=== PATIENT | male | born 1990 ===

== ENCOUNTER 2024-10-17 12:24 | Emergency (ER) | payer MEDICAID, SELFPAY ==
--- NOTE | ~2024-10-17 | XR_ITS ---
EXAMINATION: XR CHEST 1 VIEW HISTORY: cp/heartburn COMPARISON: There are no prior studies for comparison. FINDINGS: A single PA view of the chest is submitted. The lungs are expanded and clear. There is no pleural effusion, pneumothorax, or pulmonary vascular congestion. The heart is normal in size. The bones are intact. XR/XR chest 1V IMPRESSION: Clear lungs. Electronically signed by: Stevie Vela MD 10/17/2024 01:53 PM EDT
[2024-10-17 12:59] VITALS: BP 119/43; PULSE 83; RESP 20; TEMP 36.4; O2SAT 97; BMI 27.1
--- NOTE | 2024-10-17 13:01 | ED.GIBLEED ---
HPI - GI Bleed General Chief complaint: Nausea/Vomiting/Diarrhea Stated complaint: Gastro bleed, sent from urgent care Time Seen by Provider: 10/17/24 15:34 History of Present Illness ED Provider: Dirk Jean MD HPI Narrative: 34-year-old male with left upper quadrant pain reported black emesis x4. Related Data Previous Rx's ?Medication ?Instructions ?Recorded valacyclovir 1 gram tablet 1,000 mg PO TID 3 days #30 tabs 04/07/21 (Valtrex) omeprazole 20 mg capsule,delayed 20 mg PO DAILY 90 days #90 caps 10/30/21 release fluticasone propionate 50 1 spray intranasal DAILY 30 days 01/29/22 mcg/actuation nasal #9.9 mL spray,suspension omeprazole 20 mg capsule,delayed 20 mg PO DAILY 14 days #14 caps 10/17/24 release Allergies Allergy/AdvReac Type Severity Reaction Status Date / Time shrimp [SHRIMP] Allergy Unknown UNKNOWN Verified 10/17/24 13:01 [facility] Social History Social History Advance Directives: No Advance Directives Information Provided: Yes Physical Exam Vital Signs: Vital Signs: Last Vital Signs Temp 97.6 F 10/17/24 17:28 Pulse 83 10/17/24 17:28 Resp 20 10/17/24 17:28 BP 119/43 L 10/17/24 17:28 Pulse Ox 97 10/17/24 17:28 O2 Del Method Room Air 10/17/24 17:28 BMI result Body Mass Index 27.1 Const: Other: EXAM: Gen: Alert, awake, well appearing, well hydrated. Head: Atraumatic Eyes: Anicteric, Normal conjunctiva. ENT: Moist mucosa, no pallor. ? Neck: Supple. Respiratory: Breathing comfortably, No distress.Clear to auscultation bilaterally, symmetric chest expansion, No wheeze, rales, ronchi. Cardiovascular: Regular rate and rhythm. No murmurs or rub. Well perfused periphery, warm extremities. No edema. ? Abdominal: Mild midepigastric tenderness only. Soft, no objective distension. No palpable masses or obvious organomegaly. ?No guarding, no rebound tenderness or other peritoneal findings. : No flank tenderness. Neuro: Alert. Gross movement of all extremities intact. ? Vital signs: See flowsheet Course Course Course Narrative: This is a Rapid Medical Exam performed in triage by Nasreen Acosta PA-C. Full HPI, ROS and PE to be performed by primary ED provider. 34 yo M presenting to the ED c/o epigastric abd pain, N/V coffee ground emesis/black emesis x last night s/p going to a BBQ & eating/drink [place]. denies emesis today. denies bloody/black stools. Denies anticoagulation use PE: Abdomen is soft with epigastric tenderness, no rebound or guarding Plan: Labs, UA Medications Administered Discontinued Medications Generic Name Dose Route Start Last Admin Trade Name David PRN Reason Stop Dose Admin Al Hydroxide/Mg Hydroxide 30 ml 10/17/24 15:35 10/17/24 16:30 Magnesium Hydrox/Alum Hydrox 30 Ml Oral.Susp PO 10/17/24 15:36 30 ml ONCE ONE Administration Lidocaine HCl 15 ml 10/17/24 15:35 10/17/24 16:30 Lidocaine Hcl Viscous 2 % 15 Ml Solution PO 10/17/24 15:36 15 ml ONCE ONE Administration Pantoprazole Sodium 80 mg 10/17/24 15:35 10/17/24 16:30 Pantoprazole Sodium 40 Mg/10 Ml Vial IVPUSH 10/17/24 15:36 80 mg ONCE ONE Administration Medical Decision Making Medical Decision Making [facility] Narrative: 34-year-old male presents 2 days after very heavy night of drinking mostly [place] and other liquor and eating pizza and greasy food. He had 4 episodes of dark described vomiting above not coffee ground he has never had GI bleeding. No vomiting episodes in the ED denies melena epigastric pain only at this time. No free air under the diaphragm no peritoneal signs. No anginal or cardiac symptoms Topical medications plus Protonix I will start him on 2 weeks PPI. Likely alcoholic gastritis can not confirm this if the patient's pain persists may need to follow up with GI felt better had some ice cream lab work reassuring including no drop in hemoglobin after repeat CBC Differential Diagnosis Differential Diagnoses: The differential diagnosis associated with the presentation includes GERD, gastritis, Gemini-James tear, less likely PUD upper GI bleed Lab Data [facility] Lab Attestation statement: I reviewed the patient's lab results. 10/17/24 16:11 10/17/24 13:18 Labs: Lab Results 05/27/25 05/27/25 05/27/25 Range/Units 13:17 13:18 13:19 WBC 10.0 (4.8-10.8) X10*3/uL RBC 4.84 (4.60-5.80) X10*6/uL Hgb 14.9 (14.0-18.0) g/dl Hct 43.6 (42.0-52.0) % MCV 90.1 (80.0-98.0) fL MCH 30.8 (27.0-33.0) pg MCHC 34.2 (31.0-36.0) g/dl RDW 12.8 (11.0-16.0) % Plt Count 262 (160-400) X10*3/uL MPV 8.6 L (9.4-12.4) fL Immature Gran % (Auto) 0.6 H (0.0-0.4) % Neut % (Auto) 40.1 L (45-73) % Lymph % (Auto) 48.2 H (20-40) % [place] % (Auto) 8.0 (2-11) % Eos % (Auto) 1.9 (0-4) % Baso % (Auto) 1.2 (0-2) % Lymph # (Auto) 4.8 (1.2-4.9) X10*3/uL [place] # (Auto) 0.8 (0.1-1.2) X10*3/uL Eos # (Auto) 0.2 (0.0-0.4) X10*3/uL Baso # (Auto) 0.1 (0.0-0.2) X10*3/uL Abs Immat Gran (auto) 0.06 H (0.00-0.03) X10*3/uL Absolute Neuts (auto) 4.0 (2.0-8.3) x10*3/uL Absolute Nucleated RBC 0.000 (0.0-0.012) X10*3/uL Nucleated RBC % (auto) 0.0 (0.0-0.2) /100WBC Neutrophils % (Manual) (45-73) % Band Neutrophils % (3-5) % Lymphocytes % (Manual) (20-40) % Atypical Lymphs % (Man) (0-6) % Monocytes % (Manual) (2-11) % Eosinophils % (Manual) (0-4) % Basophils % (Manual) (0-2) % Abs Neuts (Manual) (2.0-8.3) X10*3/uL Lymphocytes # (Manual) (1.2-4.9) X10*3/uL Atyp Lymphs # (Manual) x10*3/uL Monocytes # (Manual) (0.1-1.2) X10*3/uL Eosinophils # (Manual) (0.0-0.4) X10*3/uL Basophils # (Manual) (0.0-0.2) X10*3/uL Smudge Cells Platelet Estimate (NORMAL) Plt Morphology Comment RBC Morphology Macrocytosis /OIF Fernando Cells /OIF Smear Tech's Comments VERIFIED PT 13.3 H (10.9-12.4) SEC INR 1.2 H (0.9-1.1) Sodium 140 (135-145) mmol/L Potassium 3.6 (3.3-5.1) mmol/L Chloride 104 (96-108) mmol/L Carbon Dioxide 29 (22-29) mmol/L Anion Gap 11 L (12-20) BUN 14 (9-16) mg/dL Creatinine 1.24 (0.5-1.4) mg/dL Estim Creat Clear Calc 98.4 Estimated GFR > 60 Random Glucose 95 (60-115) mg/dL Calcium 9.4 (8.4-10.2) mg/dL Magnesium 1.8 (1.6-2.6) mg/dL Total Bilirubin 0.6 (0.0-1.0) mg/dL Direct Bilirubin 0.2 (0.0-0.5) mg/dL AST 90 H (5-37) U/L ALT 196 H (0-40) U/L Alkaline Phosphatase 85 (39-117) U/L Troponin I High Sens < 2.7 (<3.5-35.0) ng/L Total Protein 7.7 (6.5-8.0) g/dL Albumin 4.4 (3.5-5.0) g/dL Lipase 28 (8-78) U/L Urine Color Yellow Urine Appearance Cloudy Urine pH 8.5 (5.0-9.0) Ur Specific [place] 1.025 (1.005-1.025) Urine Protein 30 (1+) H (Neg-Trace) mg/dL Urine Glucose (UA) Negative (Negative) mg/dL Urine Ketones 15 (Negative) mg/dL Urine Blood Negative (Negative) Urine Nitrite Negative (Negative) Ur Leukocyte Esterase Negative (Negative) Urine RBC 0-2 (0-2) /HPF Urine WBC 0-5 (0-5) /HPF Ur Squamous Epith Cells 0-2 (0-2) /HPF Urine Bacteria None Seen (None Seen) Hyaline Casts 0-2 (0-2) /LPF 10/17/24 Range/Units 16:11 WBC 10.8 (4.8-10.8) X10*3/uL RBC 4.66 (4.60-5.80) X10*6/uL Hgb 14.6 (14.0-18.0) g/dl Hct 40.9 L (42.0-52.0) % MCV 87.8 (80.0-98.0) fL MCH 31.3 (27.0-33.0) pg MCHC 35.7 (31.0-36.0) g/dl RDW 12.8 (11.0-16.0) % Plt Count 246 (160-400) X10*3/uL MPV 8.5 L (9.4-12.4) fL Immature Gran % (Auto) Cancelled (0.0-0.4) % Neut % (Auto) Cancelled (45-73) % Lymph % (Auto) Cancelled (20-40) % [place] % (Auto) Cancelled (2-11) % Eos % (Auto) Cancelled (0-4) % Baso % (Auto) Cancelled (0-2) % Lymph # (Auto) Cancelled (1.2-4.9) X10*3/uL [place] # (Auto) Cancelled (0.1-1.2) X10*3/uL Eos # (Auto) Cancelled (0.0-0.4) X10*3/uL Baso # (Auto) Cancelled (0.0-0.2) X10*3/uL Abs Immat Gran (auto) Cancelled (0.00-0.03) X10*3/uL Absolute Neuts (auto) Cancelled (2.0-8.3) x10*3/uL Absolute Nucleated RBC 0.000 (0.0-0.012) X10*3/uL Nucleated RBC % (auto) 0.0 (0.0-0.2) /100WBC Neutrophils % (Manual) 42 L (45-73) % Band Neutrophils % 3 (3-5) % Lymphocytes % (Manual) 12 L (20-40) % Atypical Lymphs % (Man) 36 H (0-6) % Monocytes % (Manual) 5 (2-11) % Eosinophils % (Manual) 1 (0-4) % Basophils % (Manual) 1 (0-2) % Abs Neuts (Manual) 4.9 (2.0-8.3) X10*3/uL Lymphocytes # (Manual) 1.3 (1.2-4.9) X10*3/uL Atyp Lymphs # (Manual) 3.9 x10*3/uL Monocytes # (Manual) 0.5 (0.1-1.2) X10*3/uL Eosinophils # (Manual) 0.1 (0.0-0.4) X10*3/uL Basophils # (Manual) 0.1 (0.0-0.2) X10*3/uL Smudge Cells PRESENT Platelet Estimate NORMAL (NORMAL) Plt Morphology Comment NORMAL RBC Morphology NORMAL Macrocytosis 1+ (5-14) /OIF Fernando Cells 1+ (0-2) /OIF Smear Tech's Comments PT (10.9-12.4) SEC INR (0.9-1.1) Sodium (135-145) mmol/L Potassium (3.3-5.1) mmol/L Chloride (96-108) mmol/L Carbon Dioxide (22-29) mmol/L Anion Gap (12-20) BUN (9-16) mg/dL Creatinine (0.5-1.4) mg/dL Estim Creat Clear Calc Estimated GFR Random Glucose (60-115) mg/dL Calcium (8.4-10.2) mg/dL Magnesium (1.6-2.6) mg/dL Total Bilirubin (0.0-1.0) mg/dL Direct Bilirubin (0.0-0.5) mg/dL AST (5-37) U/L ALT (0-40) U/L Alkaline Phosphatase (39-117) U/L Troponin I High Sens (<3.5-35.0) ng/L Total Protein (6.5-8.0) g/dL Albumin (3.5-5.0) g/dL Lipase (8-78) U/L Urine Color Urine Appearance Urine pH (5.0-9.0) Ur Specific [place] (1.005-1.025) Urine Protein (Neg-Trace) mg/dL Urine Glucose (UA) (Negative) mg/dL Urine Ketones (Negative) mg/dL Urine Blood (Negative) Urine Nitrite (Negative) Ur Leukocyte Esterase (Negative) Urine RBC (0-2) /HPF Urine WBC (0-5) /HPF Ur Squamous Epith Cells (0-2) /HPF Urine Bacteria (None Seen) Hyaline Casts (0-2) /LPF Independent Interpretation I performed an independent interpretation of an: EKG (89 , sinus rhythm, QTC 418) Discharge Plan Discharge Clinical Impression: Abdominal pain Patient Disposition: Home, Self-Care Instructions: Abdominal Pain (ED) Additional Instructions: DISCHARGE DIAGNOSES: Abdominal pain, dark vomitus HISTORY OF PRESENTATION: ?1 day several episodes of dark vomitus without bright red blood. Upper abdominal discomfort EMERGENCY DEPARTMENT COURSE,TESTS, TREATMENTS: While in the ED today we checked labs and repeated blood counts without signs of active bleeding or dropping. You did not have any bloody vomitus or bloody bowel movements here. We feel your pain may be due to ulcer and/or alcoholic gastritis we recommend you not drink alcohol. DISCHARGE MEDICATIONS: ?[We have made no changes to your regular medication regimen] omeprazole has been prescribed to you FOLLOW-UP: ?Call your primary or general physician soon as possible to discuss your symptoms, your ED visit and to discuss follow up plans Call your primary doctor for follow up INSTRUCTIONS ?& RETURN PRECAUTIONS: If any symptoms change first call your primary physician, if it is after-hours your primary doctors office should have a provider continuous loft operator you can speak with. If the symptoms are severe or very concerning to you then call 911 or return to the ED. Return if you develop persistent dark stool or blood in the stool or vomit ongoing for more than 3-4 episodes Dirk Jean MD Emergency Physician [facility] Prescriptions: New omeprazole 20 mg capsule,delayed release(DR/EC) 20 mg PO DAILY 14 Days Qty: 14 0RF No Action valacyclovir [Valtrex] 1 gram tablet 1,000 mg PO TID 3 Days Qty: 30 2RF omeprazole 20 mg capsule,delayed release(DR/EC) 20 mg PO DAILY 90 Days Qty: 90 0RF fluticasone propionate 50 mcg/actuation spray,suspension 1 spray intranasal DAILY 30 Days Qty: 9.9 3RF Rx Instructions: administer into each nostril Interventions: ED Discharge Assessment Last Done: 10/17/24 17:28 Discharge Date/Time: 10/17/24 17:28 Print Language: Tristanian
--- NOTE | 2024-10-17 13:02 | ECG_ITS ---
Test Reason : heartburn Blood Pressure : */* mmHG Vent. Rate : 89 BPM Atrial Rate : 89 BPM P-R Int : 154 ms QRS Dur : 82 ms QT Int : 344 ms P-R-T Axes : 37 40 12 degrees QTcB Int : 418 ms Normal sinus rhythm Normal ECG No previous ECGs available Referred By: Nasreen Acosta Electronically Signed By: MYLES GARCIA MD
[2024-10-17 13:28] LABS: Appearance Urine Cloudy; Color Urine Yellow; Glucose Urine UA Negative (Negative); Leukocyte Esterase Urine Negative (Negative); Nitrite Urine Negative (Negative); PH 8.5 (5.0-9.0); Specific Gravity - Urine 1.025 (1.005-1.025); UMIC TRIGGER UACC YES; Urine Blood Negative (Negative); Urine Ketones 15 mg/dL (Negative); Urine Protein 30 (1+) mg/dL (Neg-Trace)
[2024-10-17 13:34] LABS: Bacteria Urine None Seen (None Seen); Hyaline Casts Urine 0-2 /LPF (0-2); RBC Urine 0-2 /HPF (0-2); Squamous Epithelial Cell Urine 0-2 /HPF (0-2); WBC Urine 0-5 /HPF (0-5)
[2024-10-17 13:35] LABS: INTERNATIONAL NORM RATIO 1.2 (0.9-1.1); Prothrombin Time 13.3 SEC (10.9-12.4)
[2024-10-17 13:37] LABS: Basophils Absolute Auto 0.1 X10*3/uL (0.0-0.2); Basophils Percent Auto 1.2 % (0-2); Eosinophils Absolute Auto 0.2 X10*3/uL (0.0-0.4); Eosinophils Percent Auto 1.9 % (0-4); Hematocrit 43.6 % (42.0-52.0); Hemoglobin 14.9 g/dl (14.0-18.0); Imm Gran Abs Auto 0.06 X10*3/uL (0.00-0.03); Imm Gran Pct Auto 0.6 % (0.0-0.4); Lymphocytes Absolute Auto 4.8 X10*3/uL (1.2-4.9); Lymphocytes Percent Auto 48.2 % (20-40); MANUAL DIFF FLAG SCAN; Mean Corpuscular HGB Conc 34.2 g/dl (31.0-36.0); Mean Corpuscular Hemoglobin 30.8 pg (27.0-33.0); Mean Corpuscular Volume 90.1 fL (80.0-98.0); Mean Platelet Volume 8.6 fL (9.4-12.4); Monocytes Absolute Auto 0.8 X10*3/uL (0.1-1.2); Neutrophils Percent Auto 40.1 % (45-73); Platelet Count 262 X10*3/uL (160-400); Red Blood Count 4.84 X10*6/uL (4.60-5.80); Red Cell Distribution Width 12.8 % (11.0-16.0); SCAN SMEAR FLAG 1
[2024-10-17 13:45] LABS: Alanine Aminotransferase 196 U/L (0-40); Albumin Level 4.4 g/dL (3.5-5.0); Alkaline Phosphatase 85 U/L (39-117); Anion Gap 11 (12-20); Aspartate Amino Transferase 90 U/L (5-37); Bilirubin Direct 0.2 mg/dL (0.0-0.5); Bilirubin Total 0.6 mg/dL (0.0-1.0); Blood Urea Nitrogen 14 mg/dL (9-16); Calcium 9.4 mg/dL (8.4-10.2); Carbon Dioxide 29 mmol/L (22-29); Chloride 104 mmol/L (96-108); Creatinine Clr Calc Pharmacy 98.4; Estimated Glomerular Filt Rate > 60; Glucose Random 95 mg/dL (60-115); Lipase 28 U/L (8-78); Magnesium 1.8 mg/dL (1.6-2.6); Potassium 3.6 mmol/L (3.3-5.1); Sodium 140 mmol/L (135-145); Total Protein 7.7 g/dL (6.5-8.0)
[2024-10-17 13:52] LABS: Troponin-I High Sensitivity < 2.7 ng/L (<3.5-35.0)
[2024-10-17 13:59] LABS: SLIDE REVIEW VERIFIED
[2024-10-17 16:20] LABS: Hematocrit 40.9 % (42.0-52.0); Hemoglobin 14.6 g/dl (14.0-18.0); Mean Corpuscular HGB Conc 35.7 g/dl (31.0-36.0); Mean Corpuscular Hemoglobin 31.3 pg (27.0-33.0); Mean Corpuscular Volume 87.8 fL (80.0-98.0); Mean Platelet Volume 8.5 fL (9.4-12.4); Platelet Count 246 X10*3/uL (160-400); Red Blood Count 4.66 X10*6/uL (4.60-5.80); Red Cell Distribution Width 12.8 % (11.0-16.0); White Blood Count 10.8 X10*3/uL (4.8-10.8)
[2024-10-17] MEDS: Lidocaine HCl Viscous 2 % 15 ML SOLUTION PO (16:30)
[2024-10-17] MEDS: Pantoprazole Sodium 40 MG/10 ML VIAL 80 MG IVPUSH (16:30)
[2024-10-17] MEDS: Magnesium Hydrox/Alum Hydrox 30 ML ORAL.SUSP PO (16:30)
[2024-10-17 17:07] LABS: Atypical Lymph Absolute Manual 3.9 x10*3/uL; Atypical Lymphs Percent Manual 36 % (0-6); Band Neutrophils Percent 3 % (3-5); Basophils Abs Manual 0.1 X10*3/uL (0.0-0.2); Basophils Percent Manual 1 % (0-2); Eosinophils Absolute Manual 0.1 X10*3/uL (0.0-0.4); Eosinophils Percent Manual 1 % (0-4); Lymphocytes Absolute Manual 1.3 X10*3/uL (1.2-4.9); Lymphocytes Percent Manual 12 % (20-40); Monocytes Absolute Manual 0.5 X10*3/uL (0.1-1.2); Monocytes Percent Manual 5 % (2-11); Neutrophils Absolute Manual 4.9 X10*3/uL (2.0-8.3); Neutrophils Percent Manual 42 % (45-73)
[2024-10-17 17:09] LABS: Burr Cells 1+ (0-2) /OIF; Macrocytosis 1+ (5-14) /OIF; Platelet Estimate NORMAL (NORMAL); Platelet Morphology Comment NORMAL; RBC Morphology NORMAL; Smudge Cells PRESENT
[2024-10-17 17:28] VITALS: BP 119/43; PULSE 83; RESP 20; TEMP 36.4; O2SAT 97
== END 2024-10-17 17:28 | disposition home or self-care (01) ==
PROVIDERS: Physician Assistant; Emergency Provider Emergency Medicine
DX: R11.2 Nausea with vomiting, unspecified (principal); R10.12 Left upper quadrant pain; R12 Heartburn; R10.816 Epigastric abdominal tenderness; R07.89 Other chest pain; Z79.899 Other long term (current) drug therapy
CPT/HCPCS: 36415; 71045; 80048; 80076; 81001; 83690; 83735; 84484; 85007; 85025; 85027; 85610; 93005; 99283; J2470

== ENCOUNTER → 2024-10-17 13:02 | Outpatient (BNV) | payer MEDICAID, SELFPAY | PROVIDERS: Emergency Provider Emergency Medicine; Visit Provider Internal Medicine Cardiovascular Disease | DX: R12 Heartburn (principal) | CPT/HCPCS: 93010 ==

== ENCOUNTER → 2024-10-17 13:03 | Outpatient (BNV) | payer MEDICAID, SELFPAY | PROVIDERS: Visit Provider Radiology Diagnostic Radiology | DX: R07.9 Chest pain, unspecified (principal) | CPT/HCPCS: 71045 ==